=== PATIENT | male | born 1995 | race Caucasian/White ===

== ENCOUNTER 2020-05-02 22:15 | Emergency (ER) | payer OTHER ==
[~2020-05-02] VITALS: Ht 180.3 cm; Wt 127.0 kg
[~2020-05-02 22:15] MED LIST: CETAPHIL MOIST473 ML TOP; CETAPHIL237 ML TOP; MEDROLPACK PO; MUPIROCIN15 GM TOP; TRIAMCINOLONE A15 G3 TOP; ZYRTEC10 M3 PO
[2020-05-03] MEDS ORDERED: MUPIROCIN22 GM TOP ×2 (02:22→02:23)
[2020-05-03] MEDS ORDERED: CIPRO500 MG PO (02:22)
== END 2020-05-03 02:57 | disposition home or self-care (01) ==
LOC: ER 22:15
DX: L01.09 Other impetigo (principal); R21 Rash and other nonspecific skin eruption